=== PATIENT | male | born 1950 | race Caucasian/White ===

== ENCOUNTER 2017-01-07 13:57 | Emergency (ER) | payer MEDICARE, MEDICAID ==
--- NOTE | 2017-01-07 14:17 | ER Document Report ---
ED General - General Stated Complaint: FALL/HIP PAIN Time Seen by Provider: 01/07/17 14:15 Notes: Patient is a 66-year-old male who is a resident of a local care home, [facility]. EMS was called to bring the patient here for evaluation after he fell out of his wheelchair today. They recorded a blood pressure upon their arrival of 74/46 and he had a liter of saline started at that time which is just about completed running in. Patient has no complaints. Denies any pain anywhere. Denies hitting his head. Denies any chest or rib or abdominal pains. 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 TRAVEL OUTSIDE OF THE [place] IN LAST 30 DAYS: No - Related Data Allergies/Adverse Reactions: Tetanus Vaccines and Toxoid [Tetanus] Allergy (Verified 01/24/15 20:40) Past Medical History - Social History Smoking Status: Unknown if Ever Smoked Cigarette use (# per day): No Family History: Reviewed & Not Pertinent - Past Medical History Cardiac Medical History: Reports: Hx Hypercholesterolemia, Hx Hypertension Neurological Medical History: Reports: Hx Cerebrovascular Accident Review of Systems - Review of Systems Notes: REVIEW OF SYSTEMS: CONSTITUTIONAL : Denies fever. EENT: Denies eye, ear, nose or mouth or throat pain or other symptoms. CARDIOVASCULAR: Denies chest pain. RESPIRATORY: Denies cough, chest congestion, or shortness of breath. GASTROINTESTINAL: Denies abdominal pain or nausea, vomiting, or diarrhea. GENITOURINARY: Denies difficulty or painful urinating, urinary frequency, blood in urine. MUSCULOSKELETAL: Denies back or neck pain. Complains of pain in his left hip. SKIN: Denies rash or skin lesions. Abrasions noted of the left elbow. NEUROLOGICAL: Denies LOC or altered mental status. Denies headache. Denies sensory loss or motor deficits. Patient answers questions appropriately. Seems to be oriented to place and person. ALL OTHER SYSTEMS REVIEWED AND NEGATIVE. Physical Exam - Vital signs Vitals: Resp Pulse Ox 26 H 97 01/07/17 14:36 01/07/17 14:36 Interpretation: Hypotensive - Notes Notes: PHYSICAL EXAMINATION: GENERAL: Well-appearing, in no acute distress. Blood pressures in the 80s systolic initially after 1 L of saline infused. HEAD: Atraumatic, normocephalic. EYES: Pupils equal round and reactive to light, extraocular movements intact. ENT: oropharynx clear without exudates. Moist mucous membranes. NECK: Normal range of motion, supple. LUNGS: Breath sounds clear and equal bilaterally. HEART: Regular rate and rhythm without murmurs. ABDOMEN: Soft, nontender. No guarding or rebound. BACK: No tenderness throughout entire back. EXTREMITIES: Contractures of the left extremities. Scattered ecchymosis and scratches on the patient's arms. Tender to press in the left hip region. NEUROLOGICAL: Normal speech, normal gait. Normal sensory, motor, and reflex exams. Awake, alert, and oriented x3. Cranial nerves normal. Genitourinary: Patient has some edema of the scrotum with significant erythema that looks like probably a yeast dermatitis, not a cellulitis. I am sure there is probably some mild degree of cellulitis as well, but this is primarily a fungal-looking infection of the scrotum. No fluctuance. SKIN: Warm, dry Course - Re-evaluation Re-evalutation: 01/07/17 20:15 Patient's blood pressure gradually maria del carmen to over 100 systolic. His lab work suggests dehydration and prerenal azotemia on top of chronic renal failure. His blood pressure did begin to decline a second time so I ordered a second liter of saline IV. Patient's white count was 14,500. Otherwise, lab studies were all essentially unremarkable. She was able to eat dinner. Patient does not have any evidence of significant infection or any evidence of blood loss. I think his blood pressure initially was secondary to dehydration and recommend he drink plenty of fluids and stay well-hydrated. He will be given a prescription for nystatin cream. 01/07/17 22:56 I was ready to discharge the patient home and had written discharge instructions when the nurse reported that the patient's blood pressure was again low, into the 70s and 80s systolic. I ordered another, third liter of normal saline which was infused as a bolus and the patient's blood pressure went up as high as 120 after that. He suffered no ill effects of the blood pressure being low. He remained awake and alert. Not diaphoretic. Having no chest pains or other pains. As the situation stands now, there is a delay of quite a few hours before there is a transport to take this patient back to his care home so that will give more time to watch his blood pressure and give additional IV saline, if needed. - Vital Signs Vital signs: Temp Pulse Resp BP Pulse Ox 14 102/48 L 96 01/07/17 21:46 01/07/17 21:46 01/07/17 21:46 - Laboratory Result Diagrams: 01/07/17 14:57 01/07/17 14:57 Laboratory results interpreted by me: 01/07/17 01/07/17 01/07/17 14:57 14:57 14:57 WBC 14.3 H RBC 4.17 L Hgb 11.3 L Hct 35.6 L MCHC 31.7 L RDW 14.3 H Lymphocytes % 6.8 L Absolute Neutrophils 11.1 H Potassium 5.6 H BUN 83 H Creatinine 3.23 H Est GFR ( Amer) 23 L Est GFR (Non-Af Amer) 19 L Direct Bilirubin 0.6 H Creatine Kinase 796 H CK-MB (CK-2) 5.37 H Urine Blood 01/07/17 16:15 WBC RBC Hgb Hct MCHC RDW Lymphocytes % Absolute Neutrophils Potassium BUN Creatinine Est GFR ( Amer) Est GFR (Non-Af Amer) Direct Bilirubin Creatine Kinase CK-MB (CK-2) Urine Blood SMALL H - Diagnostic Test Radiology reviewed: Image reviewed, Reports reviewed - Patient's chest x-ray is unremarkable. X-ray of the hip was inconclusive and they recommended a CT scan which was performed and it did not show any fracture. Discharge - Discharge Clinical Impression: Contusions and abrasions, Fungal infection, Dehydration Fall Qualifiers: Encounter type: initial encounter Qualified Code(s): W19.XXXA - Unspecified fall, initial encounter Condition: Stable Additional Instructions: Dehydration Dehydration can result from vomiting or diarrhea, fever, or decreased intake of fluids. If severe, hospitalization and intravenous fluids may be required. Most cases are treated at home with fluids by mouth. For the next 24 hours, drink lots of clear fluids. In mild cases, this can be soda pop or sports drinks. For more severe dehydration, the doctor may recommend special fluids such as Pedialyte or Lytren. Try to get three liters ( 3 quarts) of fluid per day. If vomiting occurs, continue to drink the fluids frequently (every 15 to 20 minutes), but in small amounts (one or two ounces). Depending on the type of dehydration, the doctor may prescribe antinausea medicine or potassium replacements. Call the doctor or return for re-examination if you become progressively weak, vomit repeatedly, or have other new symptoms. Is important that you drink plenty of fluids and keep herself well hydrated. ABRASIONS: An abrasion is a scraping injury of the skin. Some scarring may result. The seriousness of an abrasion is not always obvious at first. Hidden tissue damage may be present and infection may occur despite proper care. Complete healing may take from ten days to as long as a month. The healing time depends on the depth of the abrasion, and on the amount of crushing of underlying tissues from the injury. Keep the wound and dressing clean. Do not shower or bathe the area until okayed by the doctor. If the dressing gets wet, remove it and blot the wound dry, then reapply a clean dressing. Dressings should be changed every day. Sunscreen should be used for six months after the skin is healed. If any signs of infection occur (swelling, redness, increasing tenderness, red streaks, profuse purulent drainage from the abrasion, tender lumps in the armpit or groin above the abrasion, or fever), see the doctor immediately. Contusion Your injury has resulted in a contusion -- a crushing of the deep tissues. No injury to important structures was detected during the physician's exam. Contusions vary in the amount of pain they cause, and in the length of time required for healing. Typically, the area will become bruised, and will remain painful to touch for two or three weeks. However, most patients are back to working and playing within a few days. After the initial period of rest and cold-packs, your symptoms (together with the doctor's recommendations) will determine how rapidly you can get back to full activity. Usually this means "do what feels okay, but don't do things that hurt." If re-examination was recommended, it's important to follow up as instructed. Call the doctor or return any time if pain increases, if swelling becomes severe, if you develop numbness or weakness in an injured extremity, or if any other alarming symptoms occur. USE OF TYLENOL (ACETAMINOPHEN): Acetaminophen may be taken for pain relief or fever control. It's much safer than aspirin, offering a wider range of "safe" dosages. It is safe during . Some brand names are Tylenol, Panadol, Datril, Anacin 3, Tempra, and Liquiprin. Acetaminophen can be repeated every four hours. The following are maximum recommended dosages: WEIGHT Dose Drops Elixir Chewable( 80mg) (LBS.) drprs=droppers tsp=teaspoon >89 pounds or adults 650 mg to 900 mg Acetaminophen can be repeated every four hours. Maximum dose not to exceed 4000 mg a day. These maximum recommended dosages are slightly higher than the dosages written on the product container, but these dosages are very safe and below the toxic dosage for acetaminophen. ICE PACKS: Apply ice packs frequently against the painful area. Many different schedules are recommended, such as "20 minutes on, 20 minutes off" or "one hour ice, two hours rest." If you need to work, you may need to go longer between ice treatments. You should plan to have the area ice packed AT LEAST one fourth of the time. The ice should be applied over the wrap, tape, or splint, or over a layer of cloth -- not directly against the skin. Some ice bags have a built-in cloth and can be put directly on the skin. It appears that she will have a fungal infection of the scrotum. I am prescribing some cream to apply to that area 3 times a day. Keep the area clean and dry. Wash it with gentle soap and water once or twice a day. Then, leave it open to the air as much as possible to try to dry the skin out so that it will make it less hospitable to the yeast infection. FOLLOW-UP CARE: If you have been referred to a physician for follow-up care, call the physician s office for an appointment as you were instructed or within the next two days. If you experience worsening or a significant change in your symptoms, notify the physician immediately or return to the Emergency Department at any time for re-evaluation. Prescriptions: Nystatin 30 gm TP TID #1 cream..g. Referrals: RADHA ARROYO PA-C [Primary Care Provider] - Follow up as needed
[2017-01-07] MEDS ORDERED: LIDOCAINE 2% URO-JET 5 ML KIT MM ONE (14:21)
[2017-01-07 15:23] LABS: ABSOLUTE BASOPHILS # (AUTO) 0.1 10^3/uL (0.0-0.2); ABSOLUTE EOSINOPHILS # (AUTO) 0.6 10^3/uL (0.0-0.6); ABSOLUTE MONOCYTES (AUTO) 1.4 10^3/uL (0.1-1.4); ABSOLUTE NEUT (AUTO) 11.1 10^3/uL (1.7-8.2); BASOPHILS % (AUTO) 0.9 % (0-2); EOSINOPHILS % (AUTO) 4.4 % (0-6); HEMATOCRIT 35.6 % (37.9-51.0); HEMOGLOBIN 11.3 g/dL (13.5-17.0); HGB HCT DIFFERENCE -1.7; LYMPHOCYTES % (AUTO) 6.8 % (13-45); MEAN CORPUSCULAR HGB CONC 31.7 g/dL (32.0-36.0); MEAN CORPUSCULAR VOLUME 85 fl (80-97); MONOCYTES % (AUTO) 10.1 % (3-13); RED BLOOD COUNT 4.17 10^6/uL (4.35-5.55); RED CELL DISTRIBUTION WIDTH 14.3 % (11.5-14.0); SEGMENTED NEUTROPHILS % (AUTO) 77.8 % (42-78); WHITE BLOOD COUNT 14.3 10^3/uL (4.0-10.5)
[2017-01-07 15:49] LABS: ALANINE AMINOTRANSFERASE 49 U/L (21-72); ALBUMIN 3.6 g/dL (3.5-5.0); ALKALINE PHOSPHATASE 44 U/L (38-126); ANION GAP 12 (5-19); ASPARTATE AMINO TRANSFERASE 44 U/L (17-59); BILIRUBIN,DIRECT 0.6 mg/dL (0.0-0.4); BILIRUBIN,TOTAL 0.7 mg/dL (0.2-1.3); BLOOD UREA NITROGEN 83 mg/dL (7-20); CALCIUM 9.3 mg/dL (8.4-10.2); CARBON DIOXIDE 22 mmol/L (22-30); CHLORIDE 107 mmol/L (98-107); CREATINE KINASE 796 U/L (55-170); CREATININE RESULT 3.23 mg/dL (0.52-1.25); GLUCOSE 100 mg/dL (75-110); POTASSIUM 5.6 mmol/L (3.6-5.0); SODIUM 140.8 mmol/L (137-145); TOTAL PROTEIN 6.7 g/dL (6.3-8.2)
[2017-01-07 16:01] LABS: CREATINE KINASE MB 5.37 ng/mL (<4.55)
[2017-01-07 16:02] LABS: TROPONIN I < 0.012 ng/mL
--- NOTE | 2017-01-07 16:11 | RADIOLOGY REPORT (SQ) ---
EXAM DESCRIPTION: HIP LEFT AP/LATERAL COMPLETED DATE/TIME: 01/07/2017 4:00 pm REASON FOR STUDY: Fell and now complains of left hip pain COMPARISON: None. NUMBER OF VIEWS: Two views. TECHNIQUE: AP pelvis and additional frog-leg view of the left hip. LIMITATIONS: On all of the images, the left hip is in abduction. This limits visualization of the f emoral neck. Patient could not lay flat, pelvis is rotated towards the BENAVIDES orientation FINDINGS: MINERALIZATION: Osteoporotic LEFT HIP: Moderate joint space narrowing. No acute fracture RIGHT HIP: Mild joint space narrowing. No gross displaced acute fracture PUBIS AND ISCHIUM: No fracture. PELVIS: No fracture. SACRUM: No fracture or dislocation. No worrisome bone lesions. LOWER LUMBAR SPINE: No fracture or dislocation. No worrisome bone lesions. No significant disc disea se. SOFT TISSUES: No findings. OTHER: No other significant finding. IMPRESSION: Very limited negative study. Nonstandard radiographic positioning. If there is clinica l suspicion for a left hip or hemipelvis fracture, recommend CT of the pelvis without contrast for fu rther evaluation TECHNICAL DOCUMENTATION: JOB ID: [id number]- All Rights Reserved
--- NOTE | 2017-01-07 16:13 | RADIOLOGY REPORT (SQ) ---
EXAM DESCRIPTION: CHEST PA/LAT COMPLETED DATE/TIME: 01/07/2017 4:00 pm REASON FOR STUDY: Weakness and fell COMPARISON: January 2015 EXAM PARAMETERS: NUMBER OF VIEWS: two views TECHNIQUE: Digital Frontal and Lateral radiographic views of the chest acquired. RADIATION DOSE: NA LIMITATIONS: none FINDINGS: LUNGS AND PLEURA: No opacities, masses or pneumothorax. No pleural effusion. MEDIASTINUM AND HILAR STRUCTURES: No masses or contour abnormalities. HEART AND VASCULAR STRUCTURES: Heart normal size. No evidence for failure. BONES: No acute findings. HARDWARE: None in the chest. OTHER: No other significant finding. IMPRESSION: NO SIGNIFICANT RADIOGRAPHIC FINDING IN THE CHEST. TECHNICAL DOCUMENTATION: JOB ID: [id number] [employer]- All Rights Reserved
[2017-01-07 16:44] LABS: APPEARANCE,URINE SLIGHTLY-CLOUDY; BILIRUBIN,URINE NEGATIVE (NEGATIVE); GLUCOSE, URINE NEGATIVE (NEGATIVE); KETONES,URINE NEGATIVE (NEGATIVE); LEUKOCYTE ESTERASE,URINE NEGATIVE (NEGATIVE); NITRITE,URINE NEGATIVE (NEGATIVE); PROTEIN,URINE NEGATIVE (NEGATIVE); URINE SPECIFIC GRAVITY 1.012; UROBILINOGEN,URINE NEGATIVE mg/dL (<2.0)
[2017-01-07 17:06] LABS: RBC,URINE 0-1 /HPF; WBC,URINE 0-1 /HPF
--- NOTE | 2017-01-07 17:48 | RADIOLOGY REPORT (SQ) ---
EXAM DESCRIPTION: CT PELVIS WITHOUT COMPLETED DATE/TIME: 01/07/2017 5:24 pm REASON FOR STUDY: fall, Left hip pain, uncertain x-ray findings COMPARISON: None. TECHNIQUE: CT scan of the pelvis performed without intravenous or oral contrast. Images reviewed wi th soft tissue and bone windows. Reconstructed coronal and sagittal MPR images reviewed. All images stored on PACS. All CT scanners at this facility use dose modulation, iterative reconstruction, and/or weight based d osing when appropriate to reduce radiation dose to as low as reasonably achievable (ALARA). [facility]: Dose Right [facility]: CareDose [facility]: Dose Right [facility]: Teradose 4D [facility]: Smart Embedded Chat RADIATION DOSE: Up-to-date CT equipment and radiation dose reduction techniques were employed. CTDIv ol: 17.0 mGy. DLP: 611 mGy-cm. mGy. LIMITATIONS: None. FINDINGS: PELVIC BONES: No acute fracture. No worrisome bone lesions. VISUALIZED SPINE: No acute findings. HIP(S): No acute fracture or dislocation. No worrisome bone lesions. PELVIC SOFT TISSUES: No significant findings. EXTRAPELVIC SOFT TISSUES: No significant findings. OTHER: No other significant finding. IMPRESSION: NO ACUTE OR SIGNIFICANT FINDINGS. TECHNICAL DOCUMENTATION: JOB ID: [id number] Quality ID # [id number]: Final reports with documentation of one or more dose reduction techniques (e.g., Au tomated exposure control, adjustment of the mA and/or kV according to patient size, use of iterative reconstruction technique) 2010 [employer]- All Rights Reserved
[2017-01-07] MEDS ORDERED: NORMAL SALINE 1000 ML 1,000 ML IV ONE (18:17)
[2017-01-08] MEDS ORDERED: NORMAL SALINE 1000 ML 1,000 ML IV ONE (00:29)
[2017-01-08 01:44] VITALS: BP 64/31
--- NOTE | 2017-01-08 17:35 | EKG REPORT ---
SEVERITY:- NORMAL ECG - SINUS RHYTHM : Confirmed by: Nidia Bocanegra 08-Jan-2017 17:34:21
== END 2017-01-08 02:17 | disposition home health service (06) ==
LOC: ER 13:57
DX: S40.022A Contusion of left upper arm, initial encounter (principal); S40.021A Contusion of right upper arm, initial encounter; N50.89 Other specified disorders of the male genital organs; M25.552 Pain in left hip; B36.9 Superficial mycosis, unspecified; E86.0 Dehydration; W05.0XXA Fall from non-moving wheelchair, initial encounter; Y92.129 Unspecified place in nursing home as the place of occurrence of the external cause; E78.00 Pure hypercholesterolemia, unspecified; I10 Essential (primary) hypertension; Z86.73 Personal history of transient ischemic attack (TIA), and cerebral infarction without residual deficits
CPT/HCPCS: 93005; 99285; 96360; 51702; 36415; 87040; 87086; 82553; 82550; 85025; 80053; 81001; 84484; 71020; 73502; 72192; 93010; J7030; A9270; J3490

== ENCOUNTER 2017-02-16 12:56 | Inpatient (IN) | payer MEDICARE, MEDICAID ==
--- NOTE | 2017-02-16 13:08 | ER Document Report ---
ED General - General Stated Complaint: ALTERED MENTAL STATUS Time Seen by Provider: 02/16/17 13:07 Mode of Arrival: Stretcher Information source: Outside Facility Records TRAVEL OUTSIDE OF THE [place] IN LAST 30 DAYS: No - HPI Patient complains to provider of: Altered mental status Onset: Other - 4 days Onset/Duration: Gradual Quality of pain: No pain Associated symptoms: Slow to respond Exacerbated by: Denies Relieved by: Denies Notes: Patient is a 66-year-old male sent from [facility] for change in mental status worsening over the last 4 days, he is quite hypotensive on arrival, when I ask him a question he basically stares at me and does not provide a verbal answer, however nursing staff notes that he has answered questions appropriately for them - Related Data Allergies/Adverse Reactions: Tetanus Vaccines and Toxoid [Tetanus] Allergy (Verified 01/24/15 20:40) Home Medications: Current Home Medications Acetaminophen [Tylenol 325 mg Tablet] 650 mg PO Q6HP PRN 02/16/17 [History] Acetaminophen [Tylenol Extra Strength 500 mg Tablet] 500 mg PO Q4HP PRN [History] Albuterol Sulfate [Proair HFA] 2 puff IH Q6HP PRN 02/16/17 [History] Aspirin [Aspirin 81 mg Chewable Tablet] 81 mg PO DAILY 02/16/17 [History] Atorvastatin Calcium [Lipitor 40 mg Tablet] 40 mg PO QHS 02/16/17 [History] Cholecalciferol (Vitamin D3) [Vitamin D] 50,000 unit PO Q7D 02/16/17 [History] Citalopram Hydrobromide [Celexa 10 mg Tablet] 10 mg PO DAILY 02/16/17 [History] Diclofenac Sodium [Voltaren] 4 gm TP Q6 02/16/17 [History] Fenofibrate 160 mg PO DAILY 02/16/17 [History] Guaifenesin [Tussin Mucus-Chest Congestion] 10 ml PO Q6HP PRN 02/16/17 [History] Hydrocodone/Acetaminophen [[place] 5-325 mg Tablet] 1 tab PO Q8HP PRN 02/16/17 [ History] Ivermectin [Stromectol 3 mg Tablet] 15 mg PO .X1 02/16/17 [History] Juniper/Ashly/Znox/Pet,Wh/Estrada [Endit Ointment] 1 applic TP QHS 02/16/17 [History] Lisinopril [Prinivil 40 mg Tablet] 40 mg PO DAILY 02/16/17 [History] Loperamide HCl [Loperamide] 1 cap PO PRN PRN 02/16/17 [History] Lorazepam [Ativan 0.5 mg Tablet] 0.5 mg PO DAILY 02/16/17 [History] Magnesium Hydroxide [Milk of Magnesia] 30 ml PO HSP PRN 02/16/17 [History] Mintox 200-200-20 Oral Susp 30 ml PO Q6HP PRN 02/16/17 [History] Neomycin Herbert/Bacitrac Zn/Poly [Triple Antibiotic Ointment] 1 applic TP PRN PRN [History] Nystatin [Mycostatin Cream 15 gm] 1 applic TP Q8 02/16/17 [History] Risperidone [Risperdal] 0.5 mg PO QHS 02/16/17 [History] Trazodone HCl [Desyrel] 100 mg PO HSP PRN 02/16/17 [History] Past Medical History - General Information source: Outside Facility Records - Social History Smoking Status: Unknown if Ever Smoked Family History: Reviewed & Not Pertinent - Past Medical History Cardiac Medical History: Reports: Hx Hypercholesterolemia, Hx Hypertension Neurological Medical History: Reports: Hx Cerebrovascular Accident - Immunizations Hx Diphtheria, Pertussis, Tetanus Vaccination: No Review of Systems - Review of Systems -: Yes ROS unobtainable due to patient's medical condition Neurological/Psychological: Confusion Physical Exam - Vital signs Vitals: Temp Pulse Resp BP Pulse Ox 97.5 F 83 16 88/62 L 98 02/16/17 13:09 02/16/17 13:09 02/16/17 13:09 02/16/17 13:09 02/16/17 13:09 Interpretation: Hypotensive - General General appearance: Alert In distress: Mild - HEENT Head: Normocephalic, Atraumatic Eyes: Normal Conjunctiva: Normal Extraocular movements intact: Yes Eyelashes: Normal Pupils: PERRL Mucous membranes: Dry Pharynx: Normal Neck: Normal - Respiratory Respiratory status: No respiratory distress Chest status: Nontender Breath sounds: Normal Chest palpation: Normal - Cardiovascular Rhythm: Regular Heart sounds: Normal auscultation Murmur: No - Abdominal Inspection: Normal Distension: No distension Bowel sounds: Normal Tenderness: Nontender Organomegaly: No organomegaly - Back Back: Normal - Extremities General upper extremity: Normal inspection General lower extremity: Normal inspection - Neurological Guero Coma Scale Eye Opening: Spontaneous Guero Coma Scale Verbal: None Guero Coma Scale Motor: Obeys Commands Guero Coma Scale Total: 11 - Skin Skin Temperature: Warm Skin Moisture: Dry Skin Color: Pale Course - Re-evaluation Re-evalutation: 02/16/17 19:33 Patient with evidence of severe dehydration on labs, with acute renal failure, urinary tract infection, no leukocytosis and afebrile, however given patient's state of chronic illness it is possible he is septic, patient was discussed with the hospitalist service who agrees to admit for further evaluation and treatment, IV antibiotics have been provided in the department - Vital Signs Vital signs: Temp Pulse Resp BP Pulse Ox 97.5 F 83 11 L 94/63 L 99 02/16/17 13:09 02/16/17 13:09 02/16/17 18:50 02/16/17 18:50 02/16/17 18:50 - Laboratory Result Diagrams: 02/16/17 13:25 02/16/17 13:25 Laboratory results interpreted by me: 02/16/17 02/16/17 02/16/17 13:25 13:25 13:25 RBC 3.35 L Hgb 9.6 L Hct 28.2 L RDW 15.2 H Lymphocytes % 10.5 L PT 17.1 H Sodium 145.8 H Chloride 114 H Carbon Dioxide 16 L BUN 119 H Creatinine 4.17 H Est GFR ( Amer) 17 L Est GFR (Non-Af Amer) 14 L Calcium 8.0 L Direct Bilirubin 0.8 H Total Protein 5.9 L Albumin 3.0 L Urine Glucose (UA) Urine Blood Ur Leukocyte Esterase 02/16/17 13:55 RBC Hgb Hct RDW Lymphocytes % PT Sodium Chloride Carbon Dioxide BUN Creatinine Est GFR ( Amer) Est GFR (Non-Af Amer) Calcium Direct Bilirubin Total Protein Albumin Urine Glucose (UA) 150 H Urine Blood MODERATE H Ur Leukocyte Esterase LARGE H - Diagnostic Test Radiology reviewed: Image reviewed, Reports reviewed - Transfer of Care Care transferred to following provider: Dr Wylie Critical Care Note - Critical Care Note Total time excluding time spent on procedures (mins): 60 Comments: Patient with profound hypotension on arrival, labs consistent with severe dehydration with acute renal failure and possible sepsis from UTI, requiring multiple IV fluid boluses as well as admission to the IMCU Discharge - Discharge Clinical Impression: Dehydration, Acute encephalopathy Sepsis Qualifiers: Sepsis type: sepsis due to unspecified organism Qualified Code(s): A41.9 - Sepsis, unspecified organism ARF (acute renal failure) Qualifiers: Acute renal failure type: unspecified Qualified Code(s): N17.9 - Acute kidney failure, unspecified UTI (urinary tract infection) Qualifiers: Urinary tract infection type: site unspecified Hematuria presence: without hematuria Qualified Code(s): N39.0 - Urinary tract infection, site not specified Condition: Serious Disposition: ADMITTED INPATIENT Admitting Provider: Hospitalist Unit Admitted: [facility]
[2017-02-16] MEDS ORDERED: NORMAL SALINE 1000 ML 1,000 ML IV ONE ×3 (13:11→17:13)
[2017-02-16] MEDS ORDERED: INSULIN REG, HUMAN 100 UNIT/ML 3 ML VIAL (PYX) IV ONE (13:14)
[2017-02-16] MEDS ORDERED: CALCIUM GLUCONATE 1000 MG/10 ML INJ IV ONE (13:14)
[2017-02-16] MEDS ORDERED: DEXTROSE 50%-WATER 25 GM/50 ML DISP.SYRIN IV ONE (13:14)
--- NOTE | 2017-02-16 13:48 | RADIOLOGY REPORT (SQ) ---
EXAM DESCRIPTION: CHEST SINGLE VIEW COMPLETED DATE/TIME: 02/16/2017 1:40 pm REASON FOR STUDY: ams COMPARISON: 01/07/2017 EXAM PARAMETERS: NUMBER OF VIEWS: One view. TECHNIQUE: Single frontal radiographic view of the chest acquired. RADIATION DOSE: NA LIMITATIONS: None. FINDINGS: LUNGS AND PLEURA: No opacities, masses or pneumothorax. No pleural effusion. MEDIASTINUM AND HILAR STRUCTURES: No masses. Contour normal. HEART AND VASCULAR STRUCTURES: Heart normal in size. Normal vasculature. BONES: No acute findings. HARDWARE: None in the chest. OTHER: No other significant finding. IMPRESSION: NO ACUTE RADIOGRAPHIC FINDING IN THE CHEST. TECHNICAL DOCUMENTATION: JOB ID: [id number]
[2017-02-16 13:54] LABS: ABSOLUTE BASOPHILS # (AUTO) 0.1 10^3/uL (0.0-0.2); ABSOLUTE EOSINOPHILS # (AUTO) 0.2 10^3/uL (0.0-0.6); ABSOLUTE LYMPHOCYTES (AUTO) 0.8 10^3/uL (0.5-4.7); ABSOLUTE MONOCYTES (AUTO) 0.7 10^3/uL (0.1-1.4); BASOPHILS % (AUTO) 0.7 % (0-2); EOSINOPHILS % (AUTO) 2.4 % (0-6); HEMATOCRIT 28.2 % (37.9-51.0); HEMOGLOBIN 9.6 g/dL (13.5-17.0); HGB HCT DIFFERENCE 0.6; LYMPHOCYTES % (AUTO) 10.5 % (13-45); MEAN CORPUSCULAR HEMOGLOBIN 28.6 pg (27.0-33.4); MEAN CORPUSCULAR VOLUME 84 fl (80-97); MONOCYTES % (AUTO) 9.1 % (3-13); RED BLOOD COUNT 3.35 10^6/uL (4.35-5.55); RED CELL DISTRIBUTION WIDTH 15.2 % (11.5-14.0); SEGMENTED NEUTROPHILS % (AUTO) 77.3 % (42-78); WHITE BLOOD COUNT 7.7 10^3/uL (4.0-10.5)
[2017-02-16 13:58] LABS: PROTHROMBIN TIME 17.1 SEC (11.4-15.4)
[2017-02-16 14:07] LABS: ALANINE AMINOTRANSFERASE 30 U/L (21-72); ALKALINE PHOSPHATASE 38 U/L (38-126); ANION GAP 16 (5-19); ASPARTATE AMINO TRANSFERASE 33 U/L (17-59); BILIRUBIN,DIRECT 0.8 mg/dL (0.0-0.4); BILIRUBIN,TOTAL 0.9 mg/dL (0.2-1.3); BLOOD UREA NITROGEN 119 mg/dL (7-20); CARBON DIOXIDE 16 mmol/L (22-30); CHLORIDE 114 mmol/L (98-107); CREATININE RESULT 4.17 mg/dL (0.52-1.25); GLUCOSE 97 mg/dL (75-110); SODIUM 145.8 mmol/L (137-145); TOTAL PROTEIN 5.9 g/dL (6.3-8.2)
[2017-02-16 14:10] LABS: POTASSIUM 4.6 mmol/L (3.6-5.0)
[2017-02-16 14:19] LABS: APPEARANCE,URINE CLOUDY; BILIRUBIN,URINE NEGATIVE (NEGATIVE); GLUCOSE, URINE 150 mg/dL (NEGATIVE); KETONES,URINE NEGATIVE (NEGATIVE); LEUKOCYTE ESTERASE,URINE LARGE (NEGATIVE); NITRITE,URINE NEGATIVE (NEGATIVE); PROTEIN,URINE NEGATIVE (NEGATIVE); URINE SPECIFIC GRAVITY 1.012; UROBILINOGEN,URINE NEGATIVE mg/dL (<2.0)
[2017-02-16] MEDS ORDERED: CEFTRIAXONE INJ 1000 MG VIAL IV ONE (15:00)
[2017-02-16] MEDS ORDERED: NORMAL SALINE 1000 ML 1,000 ML IV PRN ×2 (15:24→15:30)
[2017-02-16] MEDS ORDERED: ONDANSETRON HCL INJ/PF 4 MG/2 ML SDV IV PRN (15:30)
[2017-02-16] MEDS ORDERED: MAGNESIUM HYDROXIDE SUSP 30 ML UDCUP PO PRN (15:30)
[2017-02-16 15:34] LABS: VENOUS BLOOD BASE EXCESS -5.2 mmol/L; VENOUS BLOOD HCO3 20.9 mmol/L (20-32); VENOUS BLOOD PCO2 42.8 mmHg (35-63); VENOUS BLOOD PH 7.31 (7.30-7.42)
--- NOTE | 2017-02-16 16:38 | PDOC H&P ---
History of Present Illness Admission Date/PCP: 02/16/17 15:44 RADHA ARROYO PA-C Patient complains of: Altered mental status History of Present Illness: RAHUL DUQUE JR is a 66 year old male with past medical history of left-sided CVA, essential hypertension and dyslipidemia; who resides at [facility]. He was noted by staff this afternoon to be altered in his normal mental status. EMS was called and he was transported to [facility] emergency department. He was found to have a urinary tract infection by urinalysis, hypotension with systolic pressures in the 70s, and acute kidney injury with a BUN of the 114 and a creatinine of 4.1. He was unable to participate in review of systems time. Past Medical History Cardiac Medical History: Reports: Hyperlipidema, Hypertension Pulmonary Medical History: Reports: None Neurological Medical History: Reports: Ischemic CVA - left sided weakness Endocrine Medical History: Reports: None Renal/ Medical History: Reports: None Malignancy Medical History: Reports: None GI Medical History: Reports: None Musculoskeltal Medical History: Reports: None Skin Medical History: Reports: None Psychiatric Medical History: Reports: Depression Traumatic Medical History: Reports: None Hematology: Reports: Anemia Infectious Medical History: Reports: None Past Surgical History Past Surgical History: Reports: None Social History Information Source: Emergency Med Personnel, Outside Facility Records Lives with: Senior [facility] Smoking Status: Unknown if Ever Smoked Frequency of Alcohol Use: Occasional Hx Recreational Drug Use: No Hx Prescription Drug Abuse: No - Advance Directive Resuscitation Status: Full Code Family History Family History: Reviewed & Not Pertinent Parental Family History Reviewed: No - Patient is unable Children Family History Reviewed: No Sibling(s) Family History Reviewed.: No Medication/Allergy Home Medications: Fenofibrate 1 cap PO DAILY 01/24/15 Lisinopril 1 tab PO DAILY 01/24/15 Acetaminophen [Tylenol 325 mg Tablet] 650 mg PO Q4HP PRN 30 Days 01/27/15 Aspirin [Aspirin 325 mg Tablet] 325 mg PO DAILY #30 tablet 01/27/15 Atorvastatin Calcium [Lipitor 40 mg Tablet] 40 mg PO QHS #30 tablet 01/27/15 Hydrocodone/Acetaminophen [[place] 5-325 mg Tablet] 1 tab PO Q4HP PRN #20 tablet 01/27/15 Nystatin 30 gm TP TID #1 cream..g. 06/23/17 Allergies/Adverse Reactions: Tetanus Vaccines and Toxoid [Tetanus] Allergy (Verified 01/24/15 20:40) Physical Exam Vital Signs: Temp Pulse Resp BP Pulse Ox 97.5 F 83 13 81/29 L 99 02/16/17 13:09 02/16/17 13:09 02/16/17 15:45 02/16/17 15:45 02/16/17 15:45 General appearance: PRESENT: no acute distress - Admitted to our. 2 seconds my phones ringing the only one that works 140, well-developed, well-nourished Head exam: PRESENT: atraumatic, normocephalic Eye exam: PRESENT: conjunctiva pink, EOMI, PERRLA. ABSENT: scleral icterus Ear exam: PRESENT: normal external ear exam Mouth exam: PRESENT: dry mucosa, other Teeth exam: PRESENT: poor dentation Neck exam: ABSENT: carotid bruit, JVD, lymphadenopathy, thyromegaly Respiratory exam: PRESENT: clear to auscultation meghna. ABSENT: rales, rhonchi, wheezes Cardiovascular exam: PRESENT: RRR. ABSENT: diastolic murmur, rubs, systolic murmur Pulses: PRESENT: normal dorsalis pedis pul Vascular exam: PRESENT: normal capillary refill GI/Abdominal exam: PRESENT: normal bowel sounds, soft. ABSENT: distended, guarding, mass, organolmegaly, rebound, tenderness Rectal exam: PRESENT: deferred Extremities exam: PRESENT: full ROM. ABSENT: calf tenderness, clubbing, pedal edema Musculoskeletal exam: PRESENT: ambulatory, deformity Neurological exam: PRESENT: alert, altered, awake, CN II-XII grossly intact. ABSENT: motor sensory deficit Psychiatric exam: PRESENT: flat affect Skin exam: PRESENT: dry, intact, warm. ABSENT: cyanosis, rash Results Impressions: Chest X-Ray 02/16/17 13:11 IMPRESSION: NO ACUTE RADIOGRAPHIC FINDING IN THE CHEST. Assessment & Plan - Diagnosis (1) SIRS (systemic inflammatory response syndrome) Is this a current diagnosis for this admission?: YesPlan: Patient was hypotensive with systolic blood pressure in the 70s from UTI and severe dehydration. He was afebrile, with no leucocytosis, no tachycardia or elevated lactic acid level that would be criteria for sepsis. He was aggressively rehydrated and given broad spectrum antibiotics after blood cultures and urine cultures were obtained. (2) Acute encephalopathy Is this a current diagnosis for this admission?: YesPlan: Secondary to infection and dehydration (3) Dehydration Is this a current diagnosis for this admission?: YesPlan: Patient will be agressively rehydrated with IV fluids (4) ARF (acute renal failure) Qualifiers: Acute renal failure type: unspecified Qualified Code(s): N17.9 - Acute kidney failure, unspecified Is this a current diagnosis for this admission?: YesPlan: Secondary to prerenal dehydration (5) UTI (urinary tract infection) Qualifiers: Urinary tract infection type: site unspecified Hematuria presence: without hematuria Qualified Code(s): N39.0 - Urinary tract infection, site not specified Is this a current diagnosis for this admission?: YesPlan: IV broad spectrum antibiotics, after cultures obtained (6) CVA (cerebral infarction) Qualifiers: Cerebral infarction mechanism: embolism - Time Time Spent: 50 to 70 Minutes Critical Time spent with patient: 25-34 minutes Medications reviewed and adjusted accordingly: Yes Anticipated discharge: SNF
[2017-02-16] MEDS ORDERED: DEXTROSE 5%-WATER 250 ML with NOREPINEPHRINE BITARTRATE 4 MG IV PRN ×2 (17:17)
[2017-02-16] MEDS ORDERED: NOREPINEPHRINE BITARTRATE INJ/PF 4 MG/4 ML SDV IV ONE (17:41)
[2017-02-16] MEDS ORDERED: DOCUSATE SODIUM 100 MG/10 ML UDC PO SCH (18:00)
[2017-02-16] MEDS: ALBUMIN HUMAN 50 ML IV SCH ×4 (18:08→22:06)
[2017-02-16] MEDS ORDERED: NEOMY/BACITRAC ZN/POLY OINT 15 GM TP PRN (18:19)
[2017-02-16] MEDS ORDERED: ALBUTEROL SULFATE HFA (90 MCG/PUFF) 8 GM MDI (1 MDI/ER DISP) IH PRN (18:19)
[2017-02-16] MEDS: PIPERACILLIN SODIUM/TAZOBACTAM 2.25 GM in NORMAL SALINE 50 ML IV SCH ×2 (18:57→23:44)
[2017-02-16] MEDS: DOCUSATE SODIUM 100 MG CAPSULE PO SCH (21:09)
[2017-02-16] MEDS: FAMOTIDINE 20 MG TABLET PO SCH (21:10)
[2017-02-16] MEDS: RISPERIDONE 0.25 MG TABLET PO SCH (21:50)
[2017-02-16] MEDS ORDERED: (PENDING PHARMACY ID) (Risperidone [Risperdal] 0.5 MG) PO SCH (22:00)
[2017-02-17] MEDS: NORMAL SALINE 1000 ML 1,000 ML IV PRN ×2 (01:19→06:50)
[2017-02-17 05:45] LABS: ABSOLUTE BASOPHILS # (AUTO) 0.1 10^3/uL (0.0-0.2); ABSOLUTE EOSINOPHILS # (AUTO) 0.3 10^3/uL (0.0-0.6); ABSOLUTE LYMPHOCYTES (AUTO) 0.8 10^3/uL (0.5-4.7); ABSOLUTE MONOCYTES (AUTO) 0.7 10^3/uL (0.1-1.4); BASOPHILS % (AUTO) 0.9 % (0-2); EOSINOPHILS % (AUTO) 4.1 % (0-6); HEMATOCRIT 26.9 % (37.9-51.0); HEMOGLOBIN 9.1 g/dL (13.5-17.0); HGB HCT DIFFERENCE 0.4; LYMPHOCYTES % (AUTO) 10.2 % (13-45); MEAN CORPUSCULAR HEMOGLOBIN 28.8 pg (27.0-33.4); MEAN CORPUSCULAR VOLUME 85 fl (80-97); RED BLOOD COUNT 3.18 10^6/uL (4.35-5.55); RED CELL DISTRIBUTION WIDTH 15.2 % (11.5-14.0); SEGMENTED NEUTROPHILS % (AUTO) 75.8 % (42-78); WHITE BLOOD COUNT 7.9 10^3/uL (4.0-10.5)
[2017-02-17] MEDS: HEPARIN SOD (PORCINE) 5,000 UNIT/ML 1 ML SYRINGE SUBCUT SCH ×3 (06:00→21:04)
[2017-02-17] MEDS: PIPERACILLIN SODIUM/TAZOBACTAM 2.25 GM in NORMAL SALINE 50 ML IV SCH ×4 (06:05→23:13)
[2017-02-17 06:06] LABS: ALANINE AMINOTRANSFERASE 27 U/L (21-72); ALBUMIN 3.4 g/dL (3.5-5.0); ALKALINE PHOSPHATASE 33 U/L (38-126); ANION GAP 14 (5-19); ASPARTATE AMINO TRANSFERASE 30 U/L (17-59); BILIRUBIN,DIRECT 0.7 mg/dL (0.0-0.4); BILIRUBIN,TOTAL 0.8 mg/dL (0.2-1.3); CALCIUM 8.1 mg/dL (8.4-10.2); CARBON DIOXIDE 16 mmol/L (22-30); CHLORIDE 120 mmol/L (98-107); CREATINE KINASE 465 U/L (55-170); GLUCOSE 73 mg/dL (75-110); MAGNESIUM 1.5 mg/dL (1.6-2.3); SODIUM 149.9 mmol/L (137-145); TOTAL PROTEIN 6.2 g/dL (6.3-8.2)
[2017-02-17 06:31] LABS: BLOOD UREA NITROGEN 86 mg/dL (7-20)
[2017-02-17] MEDS ORDERED: ALBUTEROL SULFATE HFA (90 MCG/PUFF) 200 PUFF/8.5 GM MDI IH PRN (07:15)
[2017-02-17] MEDS: DEXTROSE 5%-1/2 NORMAL SALINE 1,000 ML IV PRN ×3 (07:59→22:54)
[2017-02-17] MEDS ORDERED: ENOXAPARIN SODIUM INJ 30 MG/0.3 ML DISP.SYRIN SUBCUT SCH (08:00)
[2017-02-17] MEDS ORDERED: ENOXAPARIN SODIUM INJ 40 MG/0.4 ML DISP.SYRIN SUBCUT SCH (10:00)
[2017-02-17] MEDS ORDERED: MAGNESIUM HYDROXIDE SUSP 30 ML UDCUP PO PRN (11:28)
--- NOTE | 2017-02-17 13:40 | PDOC PROGRESS REPORT ---
Subjective Progress Note for:: 02/17/17 Subjective:: Patient is seen on morning rounds. He is awake, and alert. Confused to time and place but able to answer some simple questions. He denies any shortness of breath, chest pain or palpitations. He denies any nausea, diarrhea or abdominal pain. He denies any back pain or athralgias. He states he feels better. Physical Exam Vital Signs: Temp Pulse Resp BP Pulse Ox 97.5 F 90 18 113/63 98 02/17/17 11:28 02/17/17 11:28 02/17/17 11:28 02/17/17 11:28 02/17/17 11:28 Intake & Output 02/16/17 02/17/17 02/18/17 06:59 06:59 06:59 Output Total 2200 Balance -2200 Weight 78.7 kg General appearance: PRESENT: no acute distress, well-developed, well-nourished Head exam: PRESENT: atraumatic, normocephalic Eye exam: PRESENT: conjunctiva pink, EOMI, PERRLA. ABSENT: scleral icterus Ear exam: PRESENT: normal external ear exam Mouth exam: PRESENT: moist, tongue midline Neck exam: ABSENT: carotid bruit, JVD, lymphadenopathy, thyromegaly Respiratory exam: PRESENT: clear to auscultation meghna. ABSENT: rales, rhonchi, wheezes Cardiovascular exam: PRESENT: RRR. ABSENT: diastolic murmur, rubs, systolic murmur Pulses: PRESENT: normal carotid pulses, normal radial pulses Vascular exam: PRESENT: normal capillary refill GI/Abdominal exam: PRESENT: normal bowel sounds, soft. ABSENT: distended, guarding, mass, organolmegaly, rebound, tenderness Rectal exam: PRESENT: deferred Extremities exam: PRESENT: full ROM, other. ABSENT: calf tenderness, clubbing, pedal edema Musculoskeletal exam: PRESENT: normal inspection, other - left sided weakness from prior CVA Neurological exam: PRESENT: alert, altered, awake, oriented to person, CN II- XII grossly intact. ABSENT: motor sensory deficit Psychiatric exam: PRESENT: flat affect Skin exam: PRESENT: dry, intact, warm. ABSENT: cyanosis, rash Results Laboratory Results: 02/17/17 05:36 02/17/17 05:36 02/17/17 02/17/17 05:36 05:36 WBC 7.9 RBC 3.18 L Hgb 9.1 L Hct 26.9 L MCV 85 MCH 28.8 MCHC 34.0 RDW 15.2 H Plt Count 189 Seg Neutrophils % 75.8 Lymphocytes % 10.2 L Monocytes % 9.0 Eosinophils % 4.1 Basophils % 0.9 Absolute Neutrophils 6.0 Absolute Lymphocytes 0.8 Absolute Monocytes 0.7 Absolute Eosinophils 0.3 Absolute Basophils 0.1 Sodium 149.9 H Potassium 5.0 Chloride 120 H Carbon Dioxide 16 L Anion Gap 14 BUN 86 H D Creatinine 2.50 H Est GFR ( Amer) 31 L Est GFR (Non-Af Amer) 26 L Glucose 73 L Calcium 8.1 L Magnesium 1.5 L Total Bilirubin 0.8 AST 30 ALT 27 Alkaline Phosphatase 33 L Total Protein 6.2 L Albumin 3.4 L 02/17/17 05:36 Creatine Kinase 465 H Impressions: Chest X-Ray 02/16/17 13:11 IMPRESSION: NO ACUTE RADIOGRAPHIC FINDING IN THE CHEST. Assessment & Plan - Diagnosis (1) SIRS (systemic inflammatory response syndrome) Is this a current diagnosis for this admission?: YesPlan: Patient was hypotensive with systolic blood pressure in the 70s from UTI and severe dehydration. He was afebrile, with no leucocytosis, no tachycardia or elevated lactic acid level that would be criteria for sepsis. He was aggressively rehydrated and given broad spectrum antibiotics after blood cultures and urine cultures were obtained. (2) Acute encephalopathy Is this a current diagnosis for this admission?: YesPlan: Secondary to infection and dehydration (3) Dehydration Is this a current diagnosis for this admission?: YesPlan: Patient will be agressively rehydrated with IV fluids (4) ARF (acute renal failure) Qualifiers: Acute renal failure type: unspecified Qualified Code(s): N17.9 - Acute kidney failure, unspecified Is this a current diagnosis for this admission?: YesPlan: Secondary to prerenal dehydration (5) UTI (urinary tract infection) Qualifiers: Urinary tract infection type: site unspecified Hematuria presence: without hematuria Qualified Code(s): N39.0 - Urinary tract infection, site not specified Is this a current diagnosis for this admission?: YesPlan: IV broad spectrum antibiotics, after cultures obtained (6) CVA (cerebral infarction) Qualifiers: Cerebral infarction mechanism: embolism Laterality of affected vessel: right Is this a current diagnosis for this admission?: YesPlan: Chronic from 2015 - Time Time Spent with patient: 25-34 minutes Critical Time spent with patient: 15-24 minutes Medications reviewed and adjusted accordingly: Yes Anticipated discharge: Home with Homehealth - Inpatient Certification Based on my medical assessment, after consideration of the patient's comorbidities, presenting symptoms, or acuity I expect that the services needed warrant INPATIENT care.: Yes
[2017-02-17] MEDS: NYSTATIN CREAM 15 GM TP SCH ×3 (14:23→21:04)
[2017-02-17] MEDS: FAMOTIDINE 20 MG TABLET PO SCH ×2 (14:23→21:04)
[2017-02-17] MEDS: DOCUSATE SODIUM 100 MG CAPSULE PO SCH ×2 (14:23→17:38)
[2017-02-17] MEDS ORDERED: NICOTINE 21 MG/24 HR PATCH.TD24 TD ONE (17:30)
[2017-02-17] MEDS ORDERED: CEFTRIAXONE 1 GM/D5W RTU 50 ML IV SCH (18:00)
[2017-02-17] MEDS: RISPERIDONE 0.25 MG TABLET PO SCH (21:03)
[2017-02-18] MEDS: ONDANSETRON HCL INJ/PF 4 MG/2 ML SDV IV PRN ×2 (00:57→08:23)
[2017-02-18 04:44] LABS: ANION GAP 11 (5-19); CALCIUM 8.3 mg/dL (8.4-10.2); CARBON DIOXIDE 19 mmol/L (22-30); CHLORIDE 114 mmol/L (98-107); CREATININE RESULT 1.78 mg/dL (0.52-1.25); GLUCOSE 167 mg/dL (75-110); POTASSIUM 4.1 mmol/L (3.6-5.0); SODIUM 144.1 mmol/L (137-145)
[2017-02-18 04:51] LABS: MAGNESIUM 1.2 mg/dL (1.6-2.3)
[2017-02-18 04:56] LABS: BLOOD UREA NITROGEN 46 mg/dL (7-20)
[2017-02-18] MEDS: HEPARIN SOD (PORCINE) 5,000 UNIT/ML 1 ML SYRINGE SUBCUT SCH ×3 (05:06→22:04)
[2017-02-18] MEDS: NYSTATIN CREAM 15 GM TP SCH ×3 (05:08→22:04)
[2017-02-18] MEDS: PIPERACILLIN SODIUM/TAZOBACTAM 2.25 GM in NORMAL SALINE 50 ML IV SCH ×2 (05:08→12:05)
[2017-02-18] MEDS: DEXTROSE 5%-1/2 NORMAL SALINE 1,000 ML IV PRN (05:40)
[2017-02-18] MEDS: MAGNESIUM SULFATE/D5W 1 GM/100 ML RTUPB IV SCH ×3 (05:42→08:24)
[2017-02-18] MEDS ORDERED: MAGNESIUM SULFATE/D5W 100 ML IV SCH (07:00)
--- NOTE | 2017-02-18 08:17 | EKG REPORT ---
SEVERITY:- OTHERWISE NORMAL ECG - SINUS RHYTHM BORDERLINE RIGHT AXIS DEVIATION : Confirmed by: Cecilio Lee MD 18-Feb-2017 08:17:26
--- NOTE | 2017-02-18 08:35 | PDOC PROGRESS REPORT ---
Subjective Progress Note for:: 02/18/17 Subjective:: Patient is seen on morning rounds. He is awake, and alert. Confused to time and place but able to answer some simple questions. He denies any shortness of breath, chest pain or palpitations. He denies any nausea, diarrhea or abdominal pain. He denies any back pain or athralgias. He is eating and drinking well. Remaining review of systems are all normal. Physical Exam Vital Signs: Temp Pulse Resp BP Pulse Ox 97.3 F 89 18 103/54 L 98 02/18/17 07:00 02/18/17 07:00 02/18/17 07:00 02/18/17 07:00 02/18/17 07:00 Intake & Output 02/17/17 02/18/17 02/19/17 06:59 06:59 06:59 Intake Total 4450 Output Total 2200 2000 Balance -2200 2450 Weight 78.7 kg General appearance: PRESENT: no acute distress, disheveled, well-developed, well -nourished Head exam: PRESENT: atraumatic Eye exam: PRESENT: conjunctiva pink, EOMI, PERRLA. ABSENT: scleral icterus Ear exam: PRESENT: normal external ear exam Mouth exam: PRESENT: moist, tongue midline Teeth exam: PRESENT: poor dentation Neck exam: ABSENT: carotid bruit, JVD, lymphadenopathy, thyromegaly Respiratory exam: PRESENT: clear to auscultation meghna. ABSENT: rales, rhonchi, wheezes Cardiovascular exam: PRESENT: RRR. ABSENT: diastolic murmur, rubs, systolic murmur Pulses: PRESENT: normal dorsalis pedis pul Vascular exam: PRESENT: normal capillary refill GI/Abdominal exam: PRESENT: normal bowel sounds, soft. ABSENT: distended, guarding, mass, organolmegaly, rebound, tenderness Rectal exam: PRESENT: deferred Extremities exam: PRESENT: full ROM. ABSENT: calf tenderness, clubbing, pedal edema Musculoskeletal exam: PRESENT: full ROM, other - left sided weakness from CVA Neurological exam: PRESENT: alert, altered, awake, oriented to person, CN II- XII grossly intact Psychiatric exam: PRESENT: appropriate affect, normal mood. ABSENT: homicidal ideation, suicidal ideation Skin exam: PRESENT: dry, intact, warm. ABSENT: cyanosis, rash Results Laboratory Results: 02/17/17 05:36 02/18/17 04:13 02/18/17 04:13 Sodium 144.1 Potassium 4.1 Chloride 114 H Carbon Dioxide 19 L Anion Gap 11 BUN 46 H D Creatinine 1.78 H Est GFR ( Amer) 46 L Est GFR (Non-Af Amer) 38 L Glucose 167 H Calcium 8.3 L Magnesium 1.2 L* 02/17/17 05:36 Creatine Kinase 465 H Impressions: Chest X-Ray 02/16/17 13:11 IMPRESSION: NO ACUTE RADIOGRAPHIC FINDING IN THE CHEST. Assessment & Plan - Diagnosis (1) UTI (urinary tract infection) Qualifiers: Urinary tract infection type: site unspecified Hematuria presence: without hematuria Qualified Code(s): N39.0 - Urinary tract infection, site not specified; R31.9 - Hematuria, unspecified Is this a current diagnosis for this admission?: YesPlan: IV broad spectrum antibiotics, after cultures obtained (2) ARF (acute renal failure) Qualifiers: Acute renal failure type: unspecified Qualified Code(s): N17.9 - Acute kidney failure, unspecified Is this a current diagnosis for this admission?: YesPlan: Secondary to prerenal dehydration (3) SIRS (systemic inflammatory response syndrome) Is this a current diagnosis for this admission?: YesPlan: Resolved (4) Acute encephalopathy Is this a current diagnosis for this admission?: YesPlan: Secondary to infection and dehydration. Resolved (5) Dehydration Is this a current diagnosis for this admission?: YesPlan: Patient will be agressively rehydrated with IV fluids (6) CVA (cerebral infarction) Qualifiers: Cerebral infarction mechanism: embolism Laterality of affected vessel: right Is this a current diagnosis for this admission?: YesPlan: Chronic from 2015 - Time Time Spent with patient: 25-34 minutes Critical Time spent with patient: 15-24 minutes Medications reviewed and adjusted accordingly: Yes Anticipated discharge: SNF
[2017-02-18] MEDS: FAMOTIDINE 20 MG TABLET PO SCH ×2 (09:33→22:04)
[2017-02-18] MEDS: NICOTINE 21 MG/24 HR PATCH.TD24 TD SCH (09:43)
[2017-02-18] MEDS: DOCUSATE SODIUM 100 MG CAPSULE PO SCH ×2 (09:44→17:33)
[2017-02-18] MEDS: RISPERIDONE 0.25 MG TABLET PO SCH (22:04)
[2017-02-18] MEDS: CEFUROXIME 250 MG TABLET PO SCH (22:04)
[2017-02-18] MEDS ORDERED: NORMAL SALINE 1000 ML 2,000 ML IV ONE (23:51)
[2017-02-19] MEDS ORDERED: CIPROFLOXACIN 400 MG/D5W RTU 400 MG/200 ML RTUPB IV ONE (00:30)
[2017-02-19] MEDS: NYSTATIN CREAM 15 GM TP SCH ×3 (05:27→21:17)
[2017-02-19] MEDS: HEPARIN SOD (PORCINE) 5,000 UNIT/ML 1 ML SYRINGE SUBCUT SCH ×3 (05:27→21:17)
[2017-02-19 05:36] LABS: BLOOD UREA NITROGEN 24 mg/dL (7-20); MAGNESIUM 1.6 mg/dL (1.6-2.3); POTASSIUM 4.1 mmol/L (3.6-5.0)
[2017-02-19 06:20] LABS: ANION GAP 11 (5-19); CALCIUM 7.6 mg/dL (8.4-10.2); CARBON DIOXIDE 19 mmol/L (22-30); CHLORIDE 114 mmol/L (98-107); CREATININE RESULT 1.51 mg/dL (0.52-1.25); GLUCOSE 96 mg/dL (75-110); SODIUM 143.6 mmol/L (137-145)
[2017-02-19] MEDS: MAGNESIUM SULFATE/D5W 1 GM/100 ML RTUPB IV SCH ×2 (07:28→08:32)
[2017-02-19] MEDS: DOCUSATE SODIUM 100 MG CAPSULE PO SCH ×2 (09:41→17:25)
[2017-02-19] MEDS: NICOTINE 21 MG/24 HR PATCH.TD24 TD SCH (09:41)
[2017-02-19] MEDS: FAMOTIDINE 20 MG TABLET PO SCH ×2 (09:42→21:17)
[2017-02-19] MEDS: CEFUROXIME 250 MG TABLET PO SCH ×2 (09:42→21:17)
--- NOTE | 2017-02-19 09:53 | PDOC PROGRESS REPORT ---
Subjective Progress Note for:: 02/19/17 Subjective:: Patient is seen on morning rounds. He is awake, and alert. Confused to time and place but able to answer some simple questions. He denies any shortness of breath, chest pain or palpitations. He denies any nausea, or abdominal pain. He did have diarrhea last evening. He had some issues with hypotension overnight and was given fluid boluses He denies any back pain or athralgias. He is eating and drinking well. Remaining review of systems are all normal. Physical Exam Vital Signs: Temp Pulse Resp BP Pulse Ox 98.1 F 96 22 H 100/51 L 98 02/19/17 07:39 02/19/17 07:39 02/19/17 07:39 02/19/17 07:39 02/19/17 07:39 Intake & Output 02/18/17 02/19/17 02/20/17 06:59 06:59 06:59 Intake Total 4450 7029 Output Total 2000 2350 Balance 2450 4679 Weight 78.7 kg 84.7 kg General appearance: PRESENT: no acute distress, disheveled, well-developed, well -nourished Head exam: PRESENT: atraumatic, normocephalic Eye exam: PRESENT: conjunctiva pink, EOMI, PERRLA. ABSENT: scleral icterus Ear exam: PRESENT: normal external ear exam Mouth exam: PRESENT: moist, tongue midline Teeth exam: PRESENT: poor dentation Neck exam: ABSENT: carotid bruit, JVD, lymphadenopathy, thyromegaly Respiratory exam: PRESENT: clear to auscultation meghna. ABSENT: rales, rhonchi, wheezes Cardiovascular exam: PRESENT: RRR. ABSENT: diastolic murmur, rubs, systolic murmur Pulses: PRESENT: normal dorsalis pedis pul Vascular exam: PRESENT: normal capillary refill GI/Abdominal exam: PRESENT: normal bowel sounds, soft. ABSENT: distended, guarding, mass, organolmegaly, rebound, tenderness Rectal exam: PRESENT: deferred Extremities exam: PRESENT: full ROM. ABSENT: calf tenderness, clubbing, pedal edema Neurological exam: PRESENT: alert, awake, oriented to person, oriented to place , oriented to time, oriented to situation, CN II-XII grossly intact. ABSENT: motor sensory deficit Psychiatric exam: PRESENT: appropriate affect, normal mood. ABSENT: homicidal ideation, suicidal ideation Skin exam: PRESENT: dry, intact, warm. ABSENT: cyanosis, rash Results Laboratory Results: 02/17/17 05:36 02/19/17 04:34 02/19/17 04:34 Sodium 143.6 Potassium 4.1 Chloride 114 H Carbon Dioxide 19 L Anion Gap 11 BUN 24 H Creatinine 1.51 H Est GFR ( Amer) 56 L Est GFR (Non-Af Amer) 46 L Glucose 96 Calcium 7.6 L Magnesium 1.6 02/17/17 05:36 Creatine Kinase 465 H Impressions: Chest X-Ray 02/16/17 13:11 IMPRESSION: NO ACUTE RADIOGRAPHIC FINDING IN THE CHEST. Assessment & Plan - Diagnosis (1) UTI (urinary tract infection) Qualifiers: Urinary tract infection type: site unspecified Hematuria presence: without hematuria Qualified Code(s): N39.0 - Urinary tract infection, site not specified; R31.9 - Hematuria, unspecified Is this a current diagnosis for this admission?: YesPlan: IV broad spectrum antibiotics, after cultures obtained (2) ARF (acute renal failure) Qualifiers: Acute renal failure type: unspecified Qualified Code(s): N17.9 - Acute kidney failure, unspecified Is this a current diagnosis for this admission?: YesPlan: Secondary to prerenal dehydration (3) SIRS (systemic inflammatory response syndrome) Is this a current diagnosis for this admission?: YesPlan: Resolved (4) Acute encephalopathy Is this a current diagnosis for this admission?: YesPlan: Secondary to infection and dehydration. Resolved (5) Dehydration Is this a current diagnosis for this admission?: YesPlan: Patient will be agressively rehydrated with IV fluids (6) Diarrhea Qualifiers: Diarrhea type: unspecified type Qualified Code(s): R19.7 - Diarrhea , unspecified Is this a current diagnosis for this admission?: YesPlan: Will send stool for cdiff (7) CVA (cerebral infarction) Qualifiers: Cerebral infarction mechanism: embolism Laterality of affected vessel: right Is this a current diagnosis for this admission?: YesPlan: Chronic from 2014 - Time Time Spent with patient: 25-34 minutes Critical Time spent with patient: 25-34 minutes Medications reviewed and adjusted accordingly: Yes Anticipated discharge: SNF Within: within 48 hours
[2017-02-19] MEDS ORDERED: CIPROFLOXACIN 400 MG/D5W RTU 400 MG/200 ML RTUPB IV SCH (10:00)
[2017-02-19] MEDS: ACETAMINOPHEN 325 MG TABLET PO PRN (21:17)
[2017-02-19] MEDS: RISPERIDONE 0.25 MG TABLET PO SCH (21:17)
[2017-02-20] MEDS: HEPARIN SOD (PORCINE) 5,000 UNIT/ML 1 ML SYRINGE SUBCUT SCH ×3 (05:12→22:06)
[2017-02-20] MEDS: NYSTATIN CREAM 15 GM TP SCH ×3 (05:12→22:07)
[2017-02-20 05:45] LABS: ANION GAP 9 (5-19); BLOOD UREA NITROGEN 16 mg/dL (7-20); CALCIUM 8.3 mg/dL (8.4-10.2); CARBON DIOXIDE 23 mmol/L (22-30); CHLORIDE 111 mmol/L (98-107); CREATININE RESULT 1.17 mg/dL (0.52-1.25); GLUCOSE 80 mg/dL (75-110); MAGNESIUM 1.6 mg/dL (1.6-2.3); POTASSIUM 3.5 mmol/L (3.6-5.0); SODIUM 142.5 mmol/L (137-145)
[2017-02-20 05:49] LABS: HEMOGLOBIN 8.6 g/dL (13.5-17.0); HGB HCT DIFFERENCE -0.2; MEAN CORPUSCULAR HEMOGLOBIN 27.2 pg (27.0-33.4); MEAN CORPUSCULAR HGB CONC 32.9 g/dL (32.0-36.0); MEAN CORPUSCULAR VOLUME 83 fl (80-97); RED BLOOD COUNT 3.15 10^6/uL (4.35-5.55); RED CELL DISTRIBUTION WIDTH 15.6 % (11.5-14.0)
[2017-02-20 05:50] LABS: WHITE BLOOD COUNT 17.4 10^3/uL (4.0-10.5)
[2017-02-20 06:02] LABS: BAND NEUTROPHILS % (MANUAL) 1 % (3-5); BASOPHILS % (MANUAL) 0 % (0-2); EOSINOPHILS % (MANUAL) 1 % (0-6); LYMPHOCYTES % (MANUAL) 7 % (13-45); TOTAL CELLS COUNTED 100; TOXIC GRANULATION SLIGHT; TOXIC VACUOLATION PRESENT
[2017-02-20 06:03] LABS: ANISOCYTOSIS SLIGHT
[2017-02-20 06:05] LABS: OVALOCYTES SLIGHT; PLATELET CLUMPS PRESENT; POIKILOCYTOSIS SLIGHT; POLYCHROMASIA SLIGHT; TARGET CELLS SLIGHT
[2017-02-20] MEDS: FAMOTIDINE 20 MG TABLET PO SCH ×2 (10:00→22:06)
[2017-02-20] MEDS: NICOTINE 21 MG/24 HR PATCH.TD24 TD SCH (10:00)
[2017-02-20] MEDS: DOCUSATE SODIUM 100 MG CAPSULE PO SCH ×2 (10:05→17:41)
[2017-02-20] MEDS: CEFUROXIME 250 MG TABLET PO SCH ×2 (10:05→22:06)
[2017-02-20] MEDS ORDERED: POTASSIUM CHLORIDE 10 MEQ TABLET.SA PO ONE (10:48)
[2017-02-20] MEDS: ACETAMINOPHEN 325 MG TABLET PO PRN ×2 (10:57→20:12)
[2017-02-20] MEDS: LOPERAMIDE HCL 2 MG CAPSULE PO PRN ×3 (11:04→22:06)
--- NOTE | 2017-02-20 11:58 | PDOC PROGRESS REPORT ---
Subjective Progress Note for:: 02/20/17 Subjective:: Patient is seen on morning rounds. He is awake, and alert. Confused to time and place but able to answer some simple questions. He denies any shortness of breath, chest pain or palpitations. He denies any nausea, or abdominal pain. He states he is still having diarrhea, no specific abdominal pain. No fever or vomiting. His cdiff was negative yesterday. He denies any back pain or athralgias. He is eating and drinking well. Remaining review of systems are all normal. Physical Exam Vital Signs: Temp Pulse Resp BP Pulse Ox 97.3 F 76 16 116/65 97 02/20/17 07:45 02/20/17 07:45 02/20/17 07:45 02/20/17 07:45 02/20/17 07:45 Intake & Output 02/19/17 02/20/17 02/21/17 06:59 06:59 06:59 Intake Total 7029 1260 Output Total 2350 1825 Balance 4679 -565 Weight 84.7 kg 88.7 kg General appearance: PRESENT: no acute distress, obese, well-developed, well- nourished Head exam: PRESENT: atraumatic, normocephalic Eye exam: PRESENT: conjunctiva pink, EOMI, PERRLA. ABSENT: scleral icterus Ear exam: PRESENT: normal external ear exam Mouth exam: PRESENT: moist, tongue midline Neck exam: ABSENT: carotid bruit, JVD, lymphadenopathy, thyromegaly Respiratory exam: PRESENT: clear to auscultation meghna. ABSENT: rales, rhonchi, wheezes Cardiovascular exam: PRESENT: RRR. ABSENT: diastolic murmur, rubs, systolic murmur Pulses: PRESENT: normal dorsalis pedis pul Vascular exam: PRESENT: normal capillary refill GI/Abdominal exam: PRESENT: normal bowel sounds, soft. ABSENT: distended, guarding, mass, organolmegaly, rebound, tenderness Rectal exam: PRESENT: deferred Extremities exam: PRESENT: full ROM. ABSENT: calf tenderness, clubbing, pedal edema Musculoskeletal exam: PRESENT: deformity, other Neurological exam: PRESENT: alert, altered, awake, oriented to person - left sided extremities contracted, oriented to place, abnormal gait, CN II-XII grossly intact, other - left upper extremity contracted Psychiatric exam: PRESENT: appropriate affect, normal mood. ABSENT: homicidal ideation, suicidal ideation Results Laboratory Results: 02/20/17 04:34 02/20/17 04:34 02/20/17 02/20/17 04:34 04:34 WBC 17.4 H D RBC 3.15 L Hgb 8.6 L Hct 26.0 L MCV 83 MCH 27.2 MCHC 32.9 RDW 15.6 H Plt Count 229 Seg Neutrophils % Not Reportable Lymphocytes % Not Reportable Monocytes % Not Reportable Eosinophils % Not Reportable Basophils % Not Reportable Absolute Neutrophils Not Reportable Absolute Lymphocytes Not Reportable Absolute Monocytes Not Reportable Absolute Eosinophils Not Reportable Absolute Basophils Not Reportable Sodium 142.5 Potassium 3.5 L Chloride 111 H Carbon Dioxide 23 Anion Gap 9 BUN 16 Creatinine 1.17 Est GFR ( Amer) > 60 Est GFR (Non-Af Amer) > 60 Glucose 80 Calcium 8.3 L Magnesium 1.6 02/17/17 05:36 Creatine Kinase 465 H Impressions: Chest X-Ray 02/16/17 13:11 IMPRESSION: NO ACUTE RADIOGRAPHIC FINDING IN THE CHEST. Assessment & Plan - Diagnosis (1) UTI (urinary tract infection) Qualifiers: Urinary tract infection type: site unspecified Hematuria presence: without hematuria Qualified Code(s): N39.0 - Urinary tract infection, site not specified; R31.9 - Hematuria, unspecified Is this a current diagnosis for this admission?: YesPlan: IV broad spectrum antibiotics, after cultures obtained (2) ARF (acute renal failure) Qualifiers: Acute renal failure type: unspecified Qualified Code(s): N17.9 - Acute kidney failure, unspecified Is this a current diagnosis for this admission?: YesPlan: Secondary to prerenal dehydration (3) SIRS (systemic inflammatory response syndrome) Is this a current diagnosis for this admission?: YesPlan: Resolved (4) Acute encephalopathy Is this a current diagnosis for this admission?: YesPlan: Secondary to infection and dehydration. Resolved (5) Dehydration Is this a current diagnosis for this admission?: YesPlan: Patient will be agressively rehydrated with IV fluids (6) Diarrhea Qualifiers: Diarrhea type: unspecified type Qualified Code(s): R19.7 - Diarrhea , unspecified Is this a current diagnosis for this admission?: YesPlan: Will send stool for cdiff (7) CVA (cerebral infarction) Qualifiers: Cerebral infarction mechanism: embolism Laterality of affected vessel: right Is this a current diagnosis for this admission?: YesPlan: Chronic from 2015 - Time Time Spent with patient: 25-34 minutes Critical Time spent with patient: 15-24 minutes Medications reviewed and adjusted accordingly: Yes Anticipated discharge: SNF
[2017-02-20] MEDS: METRONIDAZOLE 500 MG TABLET PO SCH ×2 (14:39→22:06)
[2017-02-20] MEDS: RISPERIDONE 0.25 MG TABLET PO SCH (22:07)
[2017-02-21 05:09] LABS: HEMATOCRIT 26.5 % (37.9-51.0); HEMOGLOBIN 8.8 g/dL (13.5-17.0); HGB HCT DIFFERENCE -0.1; MEAN CORPUSCULAR HEMOGLOBIN 27.2 pg (27.0-33.4); MEAN CORPUSCULAR HGB CONC 33.3 g/dL (32.0-36.0); MEAN CORPUSCULAR VOLUME 82 fl (80-97); RED BLOOD COUNT 3.25 10^6/uL (4.35-5.55); RED CELL DISTRIBUTION WIDTH 15.7 % (11.5-14.0); WHITE BLOOD COUNT 15.7 10^3/uL (4.0-10.5)
[2017-02-21] MEDS: METRONIDAZOLE 500 MG TABLET PO SCH ×2 (05:33→15:08)
[2017-02-21] MEDS: NYSTATIN CREAM 15 GM TP SCH ×2 (05:33→15:10)
[2017-02-21] MEDS: HEPARIN SOD (PORCINE) 5,000 UNIT/ML 1 ML SYRINGE SUBCUT SCH ×2 (05:33→15:10)
[2017-02-21 05:40] LABS: ANION GAP 11 (5-19); BLOOD UREA NITROGEN 15 mg/dL (7-20); CALCIUM 8.5 mg/dL (8.4-10.2); CARBON DIOXIDE 21 mmol/L (22-30); CHLORIDE 109 mmol/L (98-107); CREATININE RESULT 1.03 mg/dL (0.52-1.25); GLUCOSE 81 mg/dL (75-110); SODIUM 140.5 mmol/L (137-145)
[2017-02-21 05:57] LABS: BASOPHILS % (MANUAL) 1 % (0-2); EOSINOPHILS % (MANUAL) 4 % (0-6); LYMPHOCYTES % (MANUAL) 8 % (13-45); TOTAL CELLS COUNTED 100
[2017-02-21 05:58] LABS: ANISOCYTOSIS SLIGHT; POLYCHROMASIA SLIGHT; TOXIC GRANULATION SLIGHT
[2017-02-21 05:59] LABS: OVALOCYTES SLIGHT; POIKILOCYTOSIS SLIGHT; TARGET CELLS SLIGHT
[2017-02-21] MEDS: FAMOTIDINE 20 MG TABLET PO SCH (09:19)
[2017-02-21] MEDS: NICOTINE 21 MG/24 HR PATCH.TD24 TD SCH (09:19)
[2017-02-21] MEDS: CEFUROXIME 250 MG TABLET PO SCH (09:19)
[2017-02-21] MEDS ORDERED: CIPROFLOXACIN HCL 500 MG TABLET PO SCH (10:00)
--- NOTE | 2017-02-21 10:05 | PDOC TRANSFER SUMMARY ---
General - Admit/Disc Date/PCP Admission Date/Primary Care Provider: 02/16/17 15:30 RADHA ARROYO PA-C Discharge Date: 02/21/17 - Discharge Diagnosis (1) UTI (urinary tract infection) Is this a current diagnosis for this admission?: YesSummary: Patient will be on Cipro 500 mg po bid x 5 more days (2) ARF (acute renal failure) Is this a current diagnosis for this admission?: YesSummary: Resolved. Secondary to dehydration (3) SIRS (systemic inflammatory response syndrome) Is this a current diagnosis for this admission?: YesSummary: Secondary to dehydration and UTI (4) Acute encephalopathy Is this a current diagnosis for this admission?: YesSummary: Resolved secondary to UTI and dehydration (5) Dehydration Is this a current diagnosis for this admission?: Yes (6) Diarrhea Is this a current diagnosis for this admission?: YesSummary: Improved, questionable colitis (7) CVA (cerebral infarction) Is this a current diagnosis for this admission?: Yes (8) Colitis presumed infectious Is this a current diagnosis for this admission?: YesSummary: Cipro and Flagyl for 5 more days - Additional Information Resuscitation Status: Do Not Resuscitate Discharge Diet: Cardiac Discharge Activity: Activity As Tolerated Home Medications: Acetaminophen [Tylenol 325 mg Tablet] 650 mg PO Q6HP PRN 02/16/17 Acetaminophen [Tylenol Extra Strength 500 mg Tablet] 500 mg PO Q4HP PRN Albuterol Sulfate [Proair HFA] 2 puff IH Q6HP PRN 02/16/17 Aspirin [Aspirin 81 mg Chewable Tablet] 81 mg PO DAILY 02/16/17 Atorvastatin Calcium [Lipitor 40 mg Tablet] 40 mg PO QHS 02/16/17 Cholecalciferol (Vitamin D3) [Vitamin D3] 50,000 unit PO Q7D 02/16/17 Citalopram Hydrobromide [Celexa 10 mg Tablet] 10 mg PO DAILY 02/16/17 Diclofenac Sodium [Voltaren] 4 gm TP Q6 02/16/17 Fenofibrate 160 mg PO DAILY 02/16/17 Guaifenesin [Tussin Mucus-Chest Congestion] 10 ml PO Q6HP PRN 02/16/17 Ivermectin [Stromectol 3 mg Tablet] 15 mg PO .X1 02/16/17 Juniper/Ashly/Znox/Pet,Wh/Estrada [Endit Ointment] 1 applic TP QHS 02/16/17 Lisinopril [Prinivil 40 mg Tablet] 40 mg PO DAILY 02/16/17 Loperamide HCl [Loperamide] 1 cap PO PRN PRN 02/16/17 Magnesium Hydroxide [Milk of Magnesia] 30 ml PO HSP PRN 02/16/17 Mintox 200-200-20 Oral Susp 30 ml PO Q6HP PRN 02/16/17 Neomycin Herbert/Bacitrac Zn/Poly [Triple Antibiotic Ointment] 1 applic TP PRN PRN Nystatin [Mycostatin Cream 15 gm] 1 applic TP Q8 02/16/17 Risperidone [Risperdal] 0.5 mg PO QHS 02/16/17 Trazodone HCl [Desyrel] 100 mg PO HSP PRN 02/16/17 Ciprofloxacin HCl [Cipro 500 mg Tablet] 500 mg PO Q12 #10 tablet 02/21/17 Hydrocodone/Acetaminophen [Randall 5-325 mg Tablet] 1 tab PO Q8HP PRN #9 tablet Loperamide HCl [Imodium 2 mg Capsule] 2 mg PO Q4HP PRN capsule 02/21/17 Lorazepam [Ativan 0.5 mg Tablet] 0.5 mg PO DAILY #3 tablet 02/21/17 Magnesium Hydroxide [Milk of Magnesia 30 ml Udcup] 30 ml PO HSP PRN udc Metronidazole [Flagyl 500 mg Tablet] 500 mg PO Q8 #15 tablet 02/21/17 History of Present Illness Admission Date/PCP: 02/16/17 15:30 RADHA ARROYO PA-C Patient complains of: Altered mental status History of Present Illness: RAHUL DUQUE JR is a 66 year old male with past medical history of left-sided CVA, essential hypertension and dyslipidemia; who resides at [facility]. He was noted by staff this afternoon to be altered in his normal mental status. EMS was called and he was transported to [facility] emergency department. He was found to have a urinary tract infection by urinalysis, hypotension with systolic pressures in the 70s, and acute kidney injury with a BUN of the 114 and a creatinine of 4.1. He was unable to participate in review of systems time. Hospital Course Hospital Course: Patient received 4 liters of normal saline IV boluses, secondary to hypotension. He was started on IV levophed infusion overnight. Levophed was weaned off the next day. His mentation improved to baseline. He was down graded to the telemetry floor. Blood cultures remained negative x 2. Urine culture grew eschericia coli. He was continued on IV Ceftriazone daily . On hospital day three he developed diarrhea. Stool culture was negative for cdiff. He had mild left upper quadrant pain. He was started on cipro and flagyl and IV ceftriazone was discontinued. ALMITA resolved with IV hydration. His appetite improved to normal. Vitals signs remained stable during remainder of his hospitalization. Physical Exam Vital Signs: Temp Pulse Resp BP Pulse Ox 99.4 F 89 16 118/58 L 93 02/21/17 08:00 02/21/17 08:00 02/21/17 08:00 02/21/17 08:00 02/21/17 08:00 Intake & Output 02/20/17 02/21/17 02/22/17 06:59 06:59 06:59 Intake Total 1260 420 Output Total 1825 1120 Balance -565 -700 Weight 88.7 kg 86.1 kg General appearance: PRESENT: no acute distress, well-developed, well-nourished Head exam: PRESENT: atraumatic, normocephalic Eye exam: PRESENT: conjunctiva pale, EOMI, PERRLA. ABSENT: scleral icterus Ear exam: PRESENT: normal external ear exam Mouth exam: PRESENT: moist, tongue midline Neck exam: ABSENT: carotid bruit, JVD, lymphadenopathy, thyromegaly Respiratory exam: PRESENT: clear to auscultation meghna. ABSENT: rales, rhonchi, wheezes Cardiovascular exam: PRESENT: RRR. 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 ABSENT: motor sensory deficit Psychiatric exam: PRESENT: appropriate affect, normal mood. ABSENT: homicidal ideation, suicidal ideation Skin exam: PRESENT: dry, intact, warm. ABSENT: cyanosis, rash Results Laboratory Results: 02/21/17 04:14 02/21/17 04:14 02/21/17 02/21/17 04:14 04:14 WBC 15.7 H RBC 3.25 L Hgb 8.8 L Hct 26.5 L MCV 82 MCH 27.2 MCHC 33.3 RDW 15.7 H Plt Count 273 Seg Neutrophils % Not Reportable Lymphocytes % Not Reportable Monocytes % Not Reportable Eosinophils % Not Reportable Basophils % Not Reportable Absolute Neutrophils Not Reportable Absolute Lymphocytes Not Reportable Absolute Monocytes Not Reportable Absolute Eosinophils Not Reportable Absolute Basophils Not Reportable Sodium 140.5 Potassium 4.0 Chloride 109 H Carbon Dioxide 21 L Anion Gap 11 BUN 15 Creatinine 1.03 Est GFR ( Amer) > 60 Est GFR (Non-Af Amer) > 60 Glucose 81 Calcium 8.5 02/17/17 05:36 Creatine Kinase 465 H Impressions: Chest X-Ray 02/16/17 13:11 IMPRESSION: NO ACUTE RADIOGRAPHIC FINDING IN THE CHEST. Transfer Plan - Time Spent with Patient Time spent with patient: Less than 30 Minutes Qualifiers PATEINT BEING DISCHARGED WITH ANY OF THE FOLLOWING DIAGNOSIS?: No Plan Discharge Plan: Return to [facility] Time Spent: Less than 30 Minutes
[2017-02-21] MEDS: DOCUSATE SODIUM 100 MG CAPSULE PO SCH (12:52)
[2017-02-21 16:07] VITALS: BP 101/59
== END 2017-02-21 17:00 | disposition home health service (06) | DRG 682 ==
LOC: ER 12:56 → EH 15:30 → UNDOADMIN 15:44 → 4S 02-17 10:35 → 4N 02-19 11:36
PROVIDERS: ADMIT Family Medicine; ATTEND Family Medicine
DX: N17.9 Acute kidney failure, unspecified (principal); G93.40 Encephalopathy, unspecified; N39.0 Urinary tract infection, site not specified; A09 Infectious gastroenteritis and colitis, unspecified; I69.354 Hemiplegia and hemiparesis following cerebral infarction affecting left non-dominant side; B96.20 Unspecified Escherichia coli [E. coli] as the cause of diseases classified elsewhere; E86.0 Dehydration; Z66 Do not resuscitate; I10 Essential (primary) hypertension; E78.5 Hyperlipidemia, unspecified; F32.9 Major depressive disorder, single episode, unspecified; Z79.899 Other long term (current) drug therapy; Z79.82 Long term (current) use of aspirin; Z88.7 Allergy status to serum and vaccine
CPT/HCPCS: 36415; 71010; 80048; 80053; 81001; 82550; 82803; 83605; 83735; 85025; 85027; 85610; 87040; 87086; 87088; 87186; 87493; 93005; 93010; 99291; J0696; J0744; J1644; J2405; J2543; J3475; J3490; J7030; J7060; P9047